=== PATIENT | female | born 1960 | race Caucasian/White ===

== ENCOUNTER 2021-02-03 08:16 | Day surgery (SDC) | payer BC ==
[2021-01-31 13:49] VITALS: BMI 24.9
[2021-02-03 08:56] VITALS: RESP 16; TEMP 98.8
[2021-02-03] MEDS ORDERED: LACTATED RINGERS 1,000 ML IV ONE ×2 (09:08)
[2021-02-03] MEDS ORDERED: LIDOCAINE 1% (10MG/ML) FOR IV START INTRADERMA ONE (09:09)
[2021-02-03] MEDS ORDERED: ONDANSETRON 4 MG/2 ML VIAL IVP STA (09:13)
[2021-02-03] MEDS ORDERED: PROPOFOL 10 MG/ML 20 ML VIAL IV ONE (10:07)
[2021-02-03] MEDS ORDERED: MIDAZOLAM 2 MG/2 ML VIAL ONE (10:07)
--- NOTE | 2021-02-03 10:12 | P.GSHP ---
History of Present Illness H&P Date: 02/03/21 Chief Complaint: GI bleed Is a 60-year-old female presents today for colonoscopy. She's had issues with rectal bleeding. 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 MENIERE'S History of Any Multi-Drug Resistant Organisms: None Reported Past Surgical History: Hysterectomy Additional Past Surgical History / Comment(s): COLONOSCOPY, BLADDER PROCEDURE. HEMORRHOIDECTOMY. SQUAMOUS CELL REMOVED. BILAT OCULOPLASTY Past Anesthesia/Blood Transfusion Reactions: No Reported Reaction, Motion Sickness Additional Past Anesthesia/Blood Transfusion Reaction / Comment(s): NO NAUSEA OR VOMITING BUT RECEIVES RX TO PREVENT. Past Psychological History: Anxiety, Panic Disorder Smoking Status: Never smoker Past Alcohol Use History: Occasional Past Drug Use History: None Reported - Past Family History Father Family Medical History: Cancer Additional Family Medical History / Comment(s): PROSTATE AND BASAL CELL CANCER Mother Family Medical History: Cancer Additional Family Medical History / Comment(s): OVARIAN CANCER Medications and Allergies Home Medications Medication Instructions Recorded Confirmed Type Famciclovir [Famvir] 500 mg PO DAILY 08/03/14 02/03/21 History Rosuvastatin [Crestor] 20 mg PO SUMOTH 08/03/14 02/03/21 History Ascorbic Acid [Vitamin C] 500 mg PO Q48H 01/31/21 01/31/21 History Biotin 1,000 mcg PO DAILY 01/31/21 01/31/21 History Calcium Citrate/Vitamin D3 1 each PO BID 01/31/21 01/31/21 History [Citracal + D Maximum Caplet] Cranberry Fruit Extract [Cranberry] 400 mg PO DAILY 01/31/21 01/31/21 History Cyanocobalamin (Vitamin B-12) 1,000 mcg PO DAILY 01/31/21 01/31/21 History [Vitamin B-12] Estrogel 1 pump TOPICAL DAILY 01/31/21 History Fluticasone Nasal [place] [Flonase 1 spray EA NOSTRIL DIRECTED 01/31/21 02/03/21 History Nasal [place]] Reyna Root 2 cap PO DAILY 01/31/21 History Ibuprofen 200 mg PO Q8H PRN 01/31/21 01/31/21 History Lysine HCl [l-Lysine] 1,000 mg PO DAILY 01/31/21 02/03/21 History Manganese 8 mg PO DAILY 01/31/21 History Niacin 500 mg PO HS 01/31/21 01/31/21 History Spironolactone 50 mg PO DIRECTED 01/31/21 01/31/21 History Turmeric Root Extract [Turmeric] 500 mg PO DAILY 01/31/21 01/31/21 History Wheat Dextrin [Benefiber] 1 dose PO DAILY 01/31/21 01/31/21 History Zinc 50 mg PO DAILY 01/31/21 01/31/21 History clonazePAM [KlonoPIN] 0.5 mg PO DAILY 01/31/21 02/03/21 History Allergies Allergy/AdvReac Type Severity Reaction Status Date / Time codeine AdvReac Nausea Verified 01/31/21 13:29 Sulfa (Sulfonamide AdvReac DOES NOT Verified 01/31/21 12:59 Antibiotics) WORK PER PT Surgical - Exam Vital Signs Temp Pulse Resp BP Pulse Ox 98.8 F 76 16 179/83 97 02/03/21 08:54 02/03/21 08:54 02/03/21 08:54 02/03/21 08:54 02/03/21 08:54 - General well developed, well nourished, no distress - Eyes PERRL - ENT normal pinna - Neck no masses - Respiratory normal expansion - Cardiovascular Rhythm: regular - Abdomen Abdomen: soft, non tender Assessment and Plan Assessment: GI bleed. We'll perform colonoscopy
--- NOTE | 2021-02-03 10:24 | P.OP ---
Date of Procedure: 02/03/21 Preoperative Diagnosis: GI bleed Postoperative Diagnosis: Internal hemorrhoids Procedure(s) Performed: Colonoscopy Anesthesia: MAC Surgeon: Sebastián Akins Pathology: none sent Condition: stable Disposition: PACU Description of Procedure: The patient's placed on the endoscopy table in the lateral position. She received IV sedation. Digital rectal exam was performed which revealed a few internal hemorrhoids. Flexible colonoscope was then placed patient anus and passed throughout the entire colon. The ileocecal valve was visualized. The cecum, ascending and transverse colon appeared normal. The descending and; appeared normal. Scope was brought back the rectum was normal. Scope was withdrawn. There is no evidence of any rectal bleeding. Presumed patient's bleeding may be due to hemorrhoids.
[2021-02-03 10:40] VITALS: BP 136/65; PULSE 71
== END 2021-02-03 11:32 | disposition home or self-care (01) ==
LOC: ORWHC2ENDO 08:16
PROVIDERS: ATTEND Surgery
DX: K64.8 Other hemorrhoids (principal); K92.2 Gastrointestinal hemorrhage, unspecified; F41.9 Anxiety disorder, unspecified; E78.5 Hyperlipidemia, unspecified; Z88.2 Allergy status to sulfonamides; Z88.5 Allergy status to narcotic agent; H81.09 Meniere's disease, unspecified ear; Z85.828 Personal history of other malignant neoplasm of skin
CPT/HCPCS: 45378; J2250; J2405; J2704

== ENCOUNTER 2023-01-24 09:17 | Day surgery (SDC) | payer BC ==
[2023-01-21 09:47] VITALS: BMI 25.7
[2023-01-24 09:41] VITALS: TEMP 97.4
[2023-01-24] MEDS: LACTATED RINGERS 1,000 ML IV SCH ×2 (10:00→10:16)
[2023-01-24] MEDS ORDERED: ONDANSETRON 4 MG/2 ML VIAL ONE (10:02)
[2023-01-24] MEDS ORDERED: PROPOFOL 10 MG/ML 20 ML VIAL IV ONE (10:18)
[2023-01-24] MEDS ORDERED: LIDOCAINE 2% INJ 20 MG/ML (2 ML VIAL) ONE (10:18)
--- NOTE | 2023-01-24 10:23 | P.GSHP ---
History of Present Illness H&P Date: 01/24/23 Chief Complaint: GERD, Indigestion This a 8-year-old female has complaints of GERD ingestion. Patient presents today for EGD. 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 MENIERE'S hx of h pylori History of Any Multi-Drug Resistant Organisms: None Reported Past Surgical History: Hysterectomy Additional Past Surgical History / Comment(s): COLONOSCOPY, BLADDER PROCEDURE. HEMORRHOIDECTOMY. SQUAMOUS CELL REMOVED. BILAT OCULOPLASTY Past Anesthesia/Blood Transfusion Reactions: Motion Sickness, Postoperative Nausea & Vomiting (PONV) Additional Past Anesthesia/Blood Transfusion Reaction / Comment(s): NO NAUSEA OR VOMITING BUT RECEIVES RX TO PREVENT. Smoking Status: Never smoker - Past Family History Father Family Medical History: Cancer Additional Family Medical History / Comment(s): PROSTATE AND BASAL CELL CANCER Mother Family Medical History: Cancer Additional Family Medical History / Comment(s): OVARIAN CANCER Medications and Allergies Home Medications Medication Instructions Recorded Confirmed Type Famciclovir [Famvir] 500 mg PO DAILY 08/03/14 01/24/23 History Rosuvastatin [Crestor] 20 mg PO SUMOTH 08/03/14 01/24/23 History Ascorbic Acid [Vitamin C] 500 mg PO Q48H 01/31/21 01/24/23 History Biotin [Biotin Disolve] 1,000 mcg PO DAILY 01/31/21 01/24/23 History Calcium Citrate/Vitamin D3 1 each PO BID 01/31/21 01/24/23 History [Citracal + D Maximum Caplet] Cranberry Fruit Extract [Cranberry] 400 mg PO DAILY 01/31/21 01/24/23 History Cyanocobalamin (Vitamin B-12) 1,000 mcg PO DAILY 01/31/21 01/24/23 History [Vitamin B-12] Estrogel 1 pump TOPICAL DAILY 01/31/21 01/24/23 History Fluticasone Nasal [place] [Flonase 1 spray EA NOSTRIL DIRECTED 01/31/21 01/24/23 History Nasal [place]] Reyna Root 2 cap PO DAILY 01/31/21 01/24/23 History Ibuprofen 200 mg PO Q8H PRN 01/31/21 01/24/23 History Manganese 8 mg PO DAILY 01/31/21 01/24/23 History Niacin 500 mg PO HS 01/31/21 01/24/23 History Spironolactone 50 mg PO DIRECTED 01/31/21 01/24/23 History Turmeric Root Extract [Turmeric] 500 mg PO DAILY 01/31/21 01/24/23 History Wheat Dextrin [Benefiber] 1 dose PO DAILY 01/31/21 01/24/23 History Zinc 50 mg PO DAILY 01/31/21 01/24/23 History clonazePAM [KlonoPIN] 0.5 mg PO DAILY 01/31/21 01/24/23 History lysine HCL [l-Lysine] 1,000 mg PO DAILY 01/31/21 01/24/23 History Dandelion Root 1 tab PO DAILY 01/21/23 01/24/23 History Allergies Allergy/AdvReac Type Severity Reaction Status Date / Time codeine AdvReac Nausea Verified 01/24/23 09:46 Sulfa (Sulfonamide AdvReac DOES NOT Verified 01/24/23 09:46 Antibiotics) WORK PER PT Surgical - Exam Vital Signs Temp Pulse Resp BP Pulse Ox 97.4 F L 72 18 184/90 98 01/24/23 09:40 01/24/23 09:40 01/24/23 09:40 01/24/23 09:40 01/24/23 09:40 - General well developed, well nourished, no distress - Eyes PERRL - ENT normal pinna - Neck no masses - Respiratory normal expansion - Cardiovascular Rhythm: regular - Abdomen Abdomen: soft, non tender Assessment and Plan Assessment: GERD, indigestion. We'll perform EGD.
--- NOTE | 2023-01-24 10:35 | P.OP ---
Date of Procedure: 01/24/23 Preoperative Diagnosis: GERD Indigestion Postoperative Diagnosis: Antral gastritis Procedure(s) Performed: EGD Anesthesia: MAC Surgeon: Sebastián Akins Pathology: other (Antrum) Condition: stable Disposition: PACU Description of Procedure: The patient's placed on the endoscopy table in the lateral position. C IV sedation. The gastroscope was oropharynx past esophagus and stomach. Scope placement pylorus. The first and second portion of the duodenum appeared normal. Scope was then brought back the antrum this. Mildly inflamed. A biopsies performed. Scope was then retroflexed and remainder the stomach appeared normal. There was no significant hiatal hernia. The GE junction was at 40 cm. The distal esophagus appeared normal. The proximal esophagus appeared normal. Scope withdrawn for patient.
[2023-01-24 10:53] VITALS: BP 157/65; PULSE 65; RESP 17
== END 2023-01-24 11:34 | disposition home or self-care (01) ==
LOC: ORWHC2ENDO 09:17
PROVIDERS: ATTEND Surgery
DX: K21.9 Gastro-esophageal reflux disease without esophagitis (principal); K30 Functional dyspepsia; K29.50 Unspecified chronic gastritis without bleeding; E78.5 Hyperlipidemia, unspecified; Z90.710 Acquired absence of both cervix and uterus; Z98.890 Other specified postprocedural states; Z79.899 Other long term (current) drug therapy; F41.9 Anxiety disorder, unspecified
CPT/HCPCS: 88305; 43239; J2704; J2001

== ENCOUNTER → 2023-01-29 | Outpatient (CLI) | payer BC ==
--- NOTE | 2023-01-29 18:54 | NM ---
EXAMINATION TYPE: NM hepatobiliary w CCK DATE OF EXAM: 01/29/2023 COMPARISON: NONE CLINICAL INDICATION: Female, 62 years old with history of K29.70 GASTRITIS, UNSPECIFIED, WITHOUT BLEE DING; TECHNIQUE: After the intravenous administration of 4.5 mCi Tc 99m Mebrofenin hepatobiliary scintigrap hy is performed. Immediate images post injection. FINDINGS: There is satisfactory initial accumulation of tracer by the liver. The gallbladder is visualized wit hin 18 minutes. The small bowel activity is noted within 4 minutes. At one hour CCK was administere d, patient was injected with 1.4 mcg of Kinevac, and gallbladder ejection fraction is calculated at 9 9 %, elevated above the expected range (35-80%). IMPRESSION: 1. No scintigraphic evidence for acute/chronic cholecystitis or biliary dyskinesia. 2. Markedly increased gallbladder ejection fraction of 99% may be seen in the setting of gallbladder hyperkinesis.
== END | disposition home or self-care (01) ==
LOC: RADNMMAIN 12:38
PROVIDERS: ATTEND Surgery
DX: K29.70 Gastritis, unspecified, without bleeding (principal)
CPT/HCPCS: 78227; A9537; J2805

== ENCOUNTER 2023-03-06 06:05 | Day surgery (SDC) | payer BC ==
[2023-02-28 11:59] VITALS: BMI 25.7
[~2023-03-06 06:05] MED LIST: ACETAMINOPHEN TAB 500 MG TAB PO PRN; HEPARIN SODIUM,PORCINE/PF 5,000 UNIT/0.5 ML SYRINGE SQ PRN
[2023-03-06] MEDS ORDERED: LIDOCAINE 1% (10MG/ML) FOR IV START INTRADERMA PRN (06:32)
[2023-03-06] MEDS ORDERED: ONDANSETRON 4 MG/2 ML VIAL IVP ONE (06:32)
[2023-03-06] MEDS ORDERED: DEXAMETHASONE SOD PHOSPHATE 4 MG/ML 1 ML VIAL IV ONE (06:32)
[2023-03-06] MEDS ORDERED: LACTATED RINGERS 1,000 ML IV ONE (06:45)
[2023-03-06] MEDS ORDERED: HYDROmorphone 0.5 MG/0.5 ML SYRINGE IVP PRN (07:00)
[2023-03-06] MEDS ORDERED: MIDAZOLAM 2 MG/2 ML VIAL IV PRN (07:00)
[2023-03-06 07:10] LABS: Basophils % (A) 0 %; Eosinophils # (A) 0.1 k/uL (0-0.7); Eosinophils % (A) 1 %; HCT 43.9 % (34.0-46.0); HGB 15.2 gm/dL (11.4-16.0); Lymphocytes # (A) 2.1 k/uL (1.0-4.8); Lymphocytes % (A) 38 %; MCH 32.9 pg (25.0-35.0); MCHC 34.6 g/dL (31.0-37.0); Mean Platelet Volume 9.8; Monocytes # (A) 0.4 k/uL (0-1.0); Monocytes % (A) 7 %; Neutrophils # (A) 2.8 k/uL (1.3-7.7); Neutrophils % (A) 51 %; Platelet Count 202 k/uL (150-450); RBC 4.62 m/uL (3.80-5.40); RDW 12.7 % (11.5-15.5); WBC 5.5 k/uL (3.8-10.6)
[2023-03-06] MEDS ORDERED: KETAMINE 10 MG/ML 20 ML VIAL ONE (07:25)
[2023-03-06] MEDS ORDERED: LIDOCAINE 2% INJ 20 MG/ML (2 ML VIAL) ONE (07:25)
[2023-03-06] MEDS ORDERED: GLYCOPYRROLATE 0.2 MG/ML 2 ML VIAL ONE (07:25)
[2023-03-06] MEDS ORDERED: fentaNYL (PF) 50 MCG/ML 2 ML AMP ONE (07:25)
[2023-03-06] MEDS ORDERED: MIDAZOLAM 2 MG/2 ML VIAL ONE (07:25)
[2023-03-06] MEDS ORDERED: ROCURONIUM 10 MG/ML (5 ML VIAL) IV ONE (07:25)
[2023-03-06] MEDS ORDERED: SUCCINYLCHOLINE CHLORIDE 200 MG/10 ML VIAL IV ONE (07:25)
[2023-03-06] MEDS ORDERED: NEOSTIGMINE 1 MG/ML 10 ML VIAL ONE (07:25)
[2023-03-06] MEDS ORDERED: LABETALOL 5 MG/ML VIAL MDV ONE (07:25)
[2023-03-06] MEDS ORDERED: PROPOFOL 10 MG/ML 20 ML VIAL IV ONE (07:25)
[2023-03-06 07:49] LABS: African American GFR (CKD) >90 (>60 ml/min/1.73 sqM); Anion Gap 10 mmol/L; Blood Urea Nitrogen 7 mg/dL (7-17); Carbon Dioxide 23 mmol/L (22-30); Chloride 106 mmol/L (98-107); Glucose 107 mg/dL (74-99); Non-African American GFR(CKD) 89 (>60 ml/min/1.73 sqM); Potassium 4.2 mmol/L (3.5-5.1); Sodium 139 mmol/L (137-145)
[2023-03-06] MEDS ORDERED: BUPIVACAIN-EPI 0.25%-1:200,000 30 ML VIAL IJ ONE (08:00)
--- NOTE | 2023-03-06 08:39 | P.GSHP ---
History of Present Illness H&P Date: 03/06/23 Chief Complaint: Right upper quadrant pain This is a 8-year-old female who's had complete the right quadrant pain. Her recent HIDA scan shows a hyperdynamic gallbladder with a 99% ejection fraction. 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 MENIERE'S hx of h pylori, GALLBLADDER DISORDER History of Any Multi-Drug Resistant Organisms: None Reported Past Surgical History: Hysterectomy Additional Past Surgical History / Comment(s): COLONOSCOPY, BLADDER PROCEDURE. HEMORRHOIDECTOMY. SQUAMOUS CELL REMOVED. BILAT OCULOPLASTY. EGD Past Anesthesia/Blood Transfusion Reactions: Motion Sickness, Postoperative Nausea & Vomiting (PONV) Additional Past Anesthesia/Blood Transfusion Reaction / Comment(s): NO NAUSEA OR VOMITING BUT RECEIVES RX TO PREVENT. MOM AND SISTER-VERY ILL WITH MORPHINE Smoking Status: Never smoker - Past Family History Father Family Medical History: Cancer Additional Family Medical History / Comment(s): PROSTATE AND BASAL CELL CANCER Mother Family Medical History: Cancer Additional Family Medical History / Comment(s): OVARIAN CANCER Medications and Allergies Home Medications Medication Instructions Recorded Confirmed Type Famciclovir [Famvir] 500 mg PO DAILY 08/03/14 03/06/23 History Rosuvastatin [Crestor] 20 mg PO SUMOTH 08/03/14 03/06/23 History Ascorbic Acid [Vitamin C] 500 mg PO Q48H 01/31/21 03/06/23 History Biotin [Biotin Disolve] 1,000 mcg PO DAILY 01/31/21 03/06/23 History Calcium Citrate/Vitamin D3 1 each PO BID 01/31/21 03/06/23 History [Citracal + D Maximum Caplet] Cranberry Fruit Extract [Cranberry] 400 mg PO DAILY 01/31/21 03/06/23 History Cyanocobalamin (Vitamin B-12) 1,000 mcg PO DAILY 01/31/21 03/06/23 History [Vitamin B-12] Estrogel 1 pump TOPICAL DAILY 01/31/21 03/06/23 History Fluticasone Nasal [place] [Flonase 1 spray EA NOSTRIL DIRECTED 01/31/21 03/06/23 History Nasal [place]] Reyna Root 2 cap PO DAILY 01/31/21 03/06/23 History Ibuprofen 200 mg PO Q8H PRN 01/31/21 03/06/23 History Manganese 8 mg PO DAILY 01/31/21 03/06/23 History Niacin 500 mg PO HS 01/31/21 03/06/23 History Spironolactone 50 mg PO DIRECTED 01/31/21 03/06/23 History Turmeric Root Extract [Turmeric] 500 mg PO DAILY 01/31/21 03/06/23 History Wheat Dextrin [Benefiber] 1 dose PO DAILY 01/31/21 03/06/23 History Zinc 50 mg PO DAILY 01/31/21 03/06/23 History clonazePAM [KlonoPIN] 0.5 mg PO DAILY 01/31/21 03/06/23 History lysine HCL [l-Lysine] 1,000 mg PO DAILY 01/31/21 03/06/23 History Dandelion Root 1 tab PO DAILY 01/21/23 03/06/23 History Aspirin EC [Ecotrin Low Dose] 81 mg PO DAILY 02/28/23 03/06/23 History Allergies Allergy/AdvReac Type Severity Reaction Status Date / Time codeine AdvReac Nausea Verified 03/06/23 06:27 Sulfa (Sulfonamide AdvReac DOES NOT Verified 03/06/23 06:27 Antibiotics) WORK PER PT Surgical - Exam Vital Signs Temp Pulse Resp BP Pulse Ox 98.4 F 69 16 172/97 97 03/06/23 06:25 03/06/23 06:25 03/06/23 06:25 03/06/23 06:25 03/06/23 06:25 - General well developed, well nourished, no distress - Eyes PERRL - ENT normal pinna - Neck no masses - Respiratory normal expansion - Cardiovascular Rhythm: regular - Abdomen Abdomen: soft, non tender Results - Labs 03/06/23 06:50 03/06/23 06:50 Abnormal Lab Results - Last 24 Hours (Table) 03/06/23 Range/Units 06:50 Glucose 107 H (74-99) mg/dL Diabetes panel 03/06/23 Range/Units 06:50 Sodium 139 (137-145) mmol/L Potassium 4.2 (3.5-5.1) mmol/L Chloride 106 (98-107) mmol/L Carbon Dioxide 23 (22-30) mmol/L BUN 7 (7-17) mg/dL Creatinine 0.74 (0.52-1.04) mg/dL Glucose 107 H (74-99) mg/dL Calcium 10.0 (8.4-10.2) mg/dL Calcium panel 03/06/23 Range/Units 06:50 Calcium 10.0 (8.4-10.2) mg/dL Pituitary panel 03/06/23 Range/Units 06:50 Sodium 139 (137-145) mmol/L Potassium 4.2 (3.5-5.1) mmol/L Chloride 106 (98-107) mmol/L Carbon Dioxide 23 (22-30) mmol/L BUN 7 (7-17) mg/dL Creatinine 0.74 (0.52-1.04) mg/dL Glucose 107 H (74-99) mg/dL Calcium 10.0 (8.4-10.2) mg/dL Adrenal panel 03/06/23 Range/Units 06:50 Sodium 139 (137-145) mmol/L Potassium 4.2 (3.5-5.1) mmol/L Chloride 106 (98-107) mmol/L Carbon Dioxide 23 (22-30) mmol/L BUN 7 (7-17) mg/dL Creatinine 0.74 (0.52-1.04) mg/dL Glucose 107 H (74-99) mg/dL Calcium 10.0 (8.4-10.2) mg/dL Assessment and Plan Assessment: Chronic cholecystitis Biliary hypokinesis We'll perform laparoscopic cholecystectomy
--- NOTE | 2023-03-06 08:40 | P.OP ---
Date of Procedure: 03/06/23 Preoperative Diagnosis: Chronic cholecystitis Biliary hyper kinesis Postoperative Diagnosis: Same Procedure(s) Performed: Laparoscopic cholecystectomy Anesthesia: MOY Surgeon: Sebastián Akins Estimated Blood Loss (ml): 5 Pathology: other (Gallbladder) Condition: stable Disposition: PACU Description of Procedure: The patient was placed on the operating table. The patient received a general endotracheal tube anesthesia. The patients abdomen was prepped and draped in the usual sterile fashion. Through an infraumbilical stab incision, the fascia of the anterior abdominal wall was grasped with a pair of Kochers and then the Veress needle was placed in the peritoneal cavity. Position of the Veress needle was confirmed with positive drop test. The abdomen was then insufflated. After adequate insufflation, the 10 mm trocar was placed in the peritoneal cavity. Following this the laparoscope was placed in the peritoneal cavity. The patient was placed in the head-up, right side up position and then a 5 mm trocar was placed in the right lateral and right subcostal position under direct visualization. A 8 mm trocar was placed in the epigastric position. The gallbladder was grasped in the fundus and infundibulum. Traction on the gallbladder was placed in the lateral and the cephalad positions. The triangle of Calot was visualized.. The cystic duct was bluntly dissected until the union of the cystic duct and common bile duct was seen. A critical view of safety was achieved. The cystic duct was then divided and sealed with the Harmonic scissors. A PDS Endoloop was then placed throughout the cystic duct stump. The cystic artery divided and sealed with the Harmonic scissors. The gallbladder was then removed from the liver bed using Harmonic scissors. The gallbladder was then extracted through the epigastric port site. Operative field was checked for any bleeding spots and Harmonic scissors was used to coagulate the liver bed. The abdomen was irrigated. The trocars were removed. The skin was closed using interrupted 3-0 Vicryl suture. Dermabond dressing were applied. The patient tolerated the procedure well.
[2023-03-06 08:52] VITALS: TEMP 97.9
[2023-03-06] MEDS: LACTATED RINGERS 1,000 ML IV SCH ×2 (09:37→10:31)
[2023-03-06 10:20] VITALS: BP 164/89; PULSE 56; RESP 18
== END 2023-03-06 10:38 | disposition home or self-care (01) ==
LOC: OR 06:05
PROVIDERS: ATTEND Surgery
DX: K81.1 Chronic cholecystitis (principal); E78.5 Hyperlipidemia, unspecified; Z79.83 Long term (current) use of bisphosphonates; Z79.1 Long term (current) use of non-steroidal anti-inflammatories (NSAID); Z79.01 Long term (current) use of anticoagulants; Z79.82 Long term (current) use of aspirin; Z79.899 Other long term (current) drug therapy; Z80.9 Family history of malignant neoplasm, unspecified; Z88.2 Allergy status to sulfonamides; Z88.5 Allergy status to narcotic agent; Z85.828 Personal history of other malignant neoplasm of skin
CPT/HCPCS: 47562; 88304; 80048; 85025; J2250; J0330; J1100; J2710; J0690; J2405; J3010; J2704; J1170; J1644; J2001; J1920